=== PATIENT | male | born 1995 | race Caucasian/White ===

== ENCOUNTER 2017-06-11 18:26 | Emergency (ER) | payer SELFPAY ==
[2017-06-11 18:40] VITALS: BP 118/76
--- NOTE | 2017-06-11 18:54 | UC ---
Abdominal Pain Male HPI - HPI Summary HPI Summary: 21 yo male with waxing and waning RUQ abd pain x 1 week no n/v no f/c no UTI symptoms no dark urine no change with activity/position/food dxed with HEP C 2 months ago not on any meds - History of Current Complaint Chief Complaint: UCAbdominalPain Stated Complaint: ABDOMINAL PAIN Time Seen by Provider: 06/11/17 18:41 Hx Obtained From: Patient Onset/Duration: Gradual Onset, Lasting Days Timing: Constant Severity Initially: Moderate Severity Currently: Moderate Pain Intensity: 7 Pain Scale Used: 0-10 Numeric Location: Discrete At: RUQ Radiates: No Character: Sharp Aggravating Factor(s): Nothing Alleviating Factor(s): Nothing Associated Signs And Symptoms: Positive: Negative - Allergies/Home Medications Allergies/Adverse Reactions: Allergies Allergy/AdvReac Type Severity Reaction Status Date / Time MS Tramadol [Tramadol] Allergy Intermediate Hives Verified 06/11/17 18:40 MS Valproic Acid Allergy See Comment Verified 06/11/17 18:40 [From Depakote] PMH/Surg Hx/FS Hx/Imm Hx Previously Healthy: Yes - Surgical History Surgical History: None - Family History Known Family History: Positive: Hypertension, Diabetes - Social History Alcohol Use: None Substance Use Type: None Smoking Status (MU): Heavy Every Day Tobacco Smoker Type: Cigarettes Amount Used/How Often: 1/2 pack daily Household Exposure Type: Cigarettes Review of Systems Constitutional: Negative Skin: Negative Eyes: Negative ENT: Negative Respiratory: Negative Cardiovascular: Negative Gastrointestinal: Abdominal Pain Genitourinary: Negative Motor: Negative Neurovascular: Negative Musculoskeletal: Negative Neurological: Negative Psychological: Negative Is Patient Immunocompromised?: No All Other Systems Reviewed And Are Negative: Yes Physical Exam Triage Information Reviewed: Yes Appearance: Well-Appearing, No Pain Distress, Well-Nourished Vital Signs: Initial Vital Signs Temp 98.9 F 06/11/17 18:36 Pulse 70 06/11/17 18:36 Resp 16 06/11/17 18:36 BP 118/76 06/11/17 18:36 Pulse Ox 100 06/11/17 18:36 Vital Signs Reviewed: Yes Eyes: Positive: Conjunctiva Clear ENT: Positive: Hearing grossly normal. Negative: Nasal congestion, Nasal drainage, Trismus, Muffled voice, Hoarse voice Neck: Positive: Supple, Nontender, No Lymphadenopathy Respiratory: Positive: Lungs clear, Normal breath sounds, No respiratory distress, No accessory muscle use Cardiovascular: Positive: RRR, No Murmur Abdomen Description: Positive: Soft. Negative: Nontender - RUQ tenderness, CVA Tenderness (R), CVA Tenderness (L), Splenomegaly Bowel Sounds: Positive: Present Musculoskeletal: Positive: ROM Intact, No Edema Neurological: Positive: Alert Psychological Exam: Normal Skin Exam: Normal Abd Pain Male Course/Dx - Course Course Of Treatment: d/w Blank Canela NP [facility]. to ER via POV - Differential Dx/Clinical Impression Provider Diagnoses: RUQ abd pain of uncertain cause Discharge - Discharge Plan Condition: Stable Disposition: [facility] Referrals: CRISTAL Sue [Primary Care Provider] - Additional Instructions: to [facility] for evaluation of your RIght upper quadrant abd pain they are expecting you
== END 2017-06-11 18:53 | disposition short-term general hospital (02) ==
LOC: UCCORT 18:26
DX: R10.11 Right upper quadrant pain (principal); F17.210 Nicotine dependence, cigarettes, uncomplicated
CPT/HCPCS: 99212; G0463

== ENCOUNTER 2017-06-14 17:46 | Emergency (ER) | payer SELFPAY ==
[2017-06-14 18:58] VITALS: BP 123/80
--- NOTE | 2017-06-14 19:56 | UC ---
Dental HPI - HPI Summary HPI Summary: Pt with pain #6 and #28 teeth progressive x 3 days. Pt denies fevers, chills. Pt states chipped #6 in sleep. Pt with h/o dental caries. Recently secured insurance -does not have dentist. No relief with motrin/apap pt's mediations reviewed this visit - History of Current Complaint Chief Complaint: UCDentalProblem Stated Complaint: ORAL COMPLAINT Time Seen by Provider: 06/14/17 19:54 Hx Obtained From: Patient Onset/Duration: Gradual Onset Pain Intensity: 8 Pain Scale Used: 0-10 Numeric Aggravating Factor(s): Heat, Cold, Chewing Alleviating Factor(s): Nothing - Allergies/Home Medications Allergies/Adverse Reactions: Allergies Allergy/AdvReac Type Severity Reaction Status Date / Time divalproex sodium Allergy See Comment Verified 06/14/17 18:59 [From Depakote] tramadol Allergy Hives Verified 06/14/17 18:59 PMH/Surg Hx/FS Hx/Imm Hx Previously Healthy: Yes - Surgical History Surgical History: None - Family History Known Family History: Positive: Hypertension, Diabetes - Social History Occupation: Employed Full-time Lives: With Family Alcohol Use: None Substance Use Type: None Smoking Status (MU): Heavy Every Day Tobacco Smoker Type: Smokeless Tobacco Amount Used/How Often: 1/2 pack daily Household Exposure Type: Cigarettes Review of Systems Constitutional: Negative ENT: Dental Pain Respiratory: Negative All Other Systems Reviewed And Are Negative: Yes Physical Exam Triage Information Reviewed: Yes Appearance: Well-Appearing, No Pain Distress, Well-Nourished Vital Signs: Initial Vital Signs Temp 99.7 F 06/14/17 18:55 Pulse 88 06/14/17 18:55 Resp 18 06/14/17 18:55 BP 123/80 06/14/17 18:55 Pulse Ox 99 06/14/17 18:55 Vital Signs Reviewed: Yes Eye Exam: Normal Eyes: Positive: Conjunctiva Clear ENT Exam: Normal ENT: Positive: Normal ENT inspection, Hearing grossly normal, Pharynx normal, TMs normal Dental: Positive: Other: - Pt with multiple caries and mild diffuse erythema at gumline + TTP #28 no fluctuance. no drainage No facial edema no intra-oral edema Neck: Positive: Supple, Nontender, No Lymphadenopathy Respiratory Exam: Normal Respiratory: Positive: Chest non-tender, Lungs clear, Normal breath sounds, No respiratory distress, No accessory muscle use Cardiovascular Exam: Normal Cardiovascular: Positive: RRR, No Murmur Abdominal Exam: Normal Abdomen Description: Positive: Nontender, No Organomegaly, Soft, Guarding Bowel Sounds: Positive: Present Musculoskeletal Exam: Normal Neurological Exam: Normal Neurological: Positive: Alert Psychological Exam: Normal Skin Exam: Normal Dental Complaint Course/Dx - Course Course Of Treatment: Pt with dental pain progressive x 3 days. abx. motrin/ apap. dental list. warm salt water. pt request narcotic - declined to Rx - Differential Dx/Diagnosis Provider Diagnoses: dental pain Discharge - Discharge Plan Condition: Stable Disposition: HOME Prescriptions: Amoxicillin PO (*) [Amoxicillin 875 MG (*)] 875 mg PO BID #20 tab Patient Education Materials: Toothache (ED) Referrals: CRISTAL Sue [Primary Care Provider] - Additional Instructions: - Take antibiotics as prescribed until gone - Okay to alternate ibuprofen (Advil, Motrin)600mg and Tylenol 1000mg every 3 hours for pain. Take with food. Do NOT take for more than 4-5 days. - okay to put Ambusol, topical numbing ointment to your painful tooth 3 times a day - swish and spit with warm, salt water - Contact a dentist from the list provided or return with any questions or concerns
== END 2017-06-14 20:12 | disposition home or self-care (01) ==
LOC: UCCORT 17:46
DX: K08.89 Other specified disorders of teeth and supporting structures (principal); Z88.5 Allergy status to narcotic agent; Z88.8 Allergy status to other drugs, medicaments and biological substances; F17.210 Nicotine dependence, cigarettes, uncomplicated
CPT/HCPCS: 99212; G0463